=== PATIENT | male | born 1950 | race Caucasian/White ===

== ENCOUNTER 2020-11-06 12:46 | Emergency (ER) | payer MEDICARE, SELFPAY ==
--- NOTE | ~2020-11-06 | CT_ITS ---
EXAMINATION: CT cervical spine wo con DATE: 11/06/2020 13:28 INDICATION: Nontraumatic neck pain TECHNIQUE: Computed tomography (CT) of the cervical spine was performed without intravenous contrast. Automated exposure control and iterative reconstruction technique were employed. The dose-length pro duct was 455.01 mGy-cm. COMPARISON: None FINDINGS: Straightening of the normal lordosis in the lower cervical spine. Mild cervical dextrocurvature. Vert ebral body heights are normal. Severe disc height loss at C3-C4, C5-C6, C6-7 and C7-T1. Mild disc hei ght loss at the remaining levels from C2-C3 through T2-T3. Visualized portions of the mastoid air ayan ls, middle ear cavities, sphenoid sinus, airway and apices of lungs are clear. Cervical soft tissues are unremarkable. The following disc levels are specifically discussed: C2-C3: Disc is mildly bulging. There is mild bilateral uncovertebral joint osteoarthritis. There is m ild right and severe left facet joint osteoarthritis. There is no neural foraminal stenosis. There is minimal central canal stenosis. C3-C4: Posterior disc osteophyte complex. There is severe bilateral uncovertebral joint osteoarthriti s. There is mild right and severe left facet joint osteoarthritis. There is mild right and moderate l eft neural foraminal stenosis. There is mild central canal stenosis. C4-C5: Disc is bulging. There is mild bilateral uncovertebral joint osteoarthritis. There is moderate left and mild to moderate right facet joint osteoarthritis. There is mild left and minimal right bong ral foraminal stenosis. There is mild central canal stenosis. C5-C6: Posterior disc osteophyte complex. There is moderate left and severe right uncovertebral joint osteoarthritis. There is mild left and moderate right facet joint osteoarthritis. There is mild left and moderate right neural foraminal stenosis. There is mild central canal stenosis. C6-C7: History disc osteophyte complex. There is moderate left and severe right uncovertebral joint o steoarthritis. There is mild to moderate bilateral facet joint osteoarthritis. There is moderate left and mild to moderate right neural foraminal stenosis. There is mild central canal stenosis. C7-T1: The disc does not extend beyond the endplate margin. There is no uncovertebral joint osteoarth ritis. There is bilateral facet joint osteoarthritis. There is no neural foraminal stenosis. There is no central canal stenosis. IMPRESSION: 1. Severe cervical spondylosis. No acute osseous abnormality. Reviewed, dictated and finalized at location A.
[2020-11-06 12:48] VITALS: BP 150/86; PULSE 87; RESP 16; TEMP 36.6; O2SAT 98
--- NOTE | 2020-11-06 13:22 | ED.GENADULT ---
HPI - General Adult General Chief complaint: Back Pain/Injury Stated complaint: upper back/neck pain Time Seen by Provider: 11/06/20 12:57 Source: patient and family Mode of arrival: ambulatory Limitations: no limitations History of Present Illness HPI narrative: 70 years old white male presents with stiffness and pain left side of the neck left upper back and left upper chest started 4 days ago. Patient denies any recent trauma. Patient works out with running on a treadmill and lifting weights, patient also go [place] the country [place] weekend for 2 to 3 days in a row. Patient denies any fever, chills, nausea, vomiting, chest pain, trouble breathing, shortness of breath, sore throat or headache. Patient also denies any focal neuro deficit. Related Data Allergies Allergy/AdvReac Type Severity Reaction Status Date / Time No Known Allergies Allergy Unverified 11/23/14 08:08 Review of Systems Review of Systems: Narrative: CONSTITUTIONAL: Denies fever, chills, or sweats. EYES: Denies visual changes, redness, or discharge. ENT: Denies rhinorrhea, congestion, sore throat, or otalgia. CARDIOVASCULAR: Denies chest pain, palpitations, or edema. RESPIRATORY: Denies cough or dyspnea. GASTROINTESTINAL: Denies abdominal pain, nausea, vomiting, or diarrhea. GENITOURINARY: Denies dysuria or hematuria. SKIN: Denies rash or itching. MUSCULOSKELETAL: Denies back pain, joint pain, or myalgia. NEUROLOGIC: Denies headache, numbness, or weakness. PSYCHIATRIC: Denies anxiety or depression. Exam Narrative: Exam Narrative: General appearance: Well-developed, well-nourished Skin: Normal color Head: Normocephalic, nontraumatic Eyes: Clear conjunctiva ENT: Oropharynx normal, ears normal, nose normal Neck: Diffuse stiffness and tenderness left side of neck. No bruises, no swelling, no mass, no lymphadenopathy severe limited range of motion Chest and respiratory: Airway patent, no respiratory distress, no accessory muscle use Heart: Regular rate/rhythm Abdomen: Soft, nontender, no organomegaly, quiet bowel sounds Vascular: Normal peripheral pulses, normal capillary refill. Musculoskeletal: Normal range of motion, nontender back Neurologic: Alert and oriented ?3, TREE SCOUT is normal as tested, no gross motor deficit Course Course Emergency Course: Stable, improving Vital Signs Vital signs: Vital Signs Temperature 36.6 C 11/06/20 12:48 Pulse Rate 87 11/06/20 12:48 Respiratory Rate 16 11/06/20 12:48 Blood Pressure 150/86 H 11/06/20 12:48 Pulse Oximetry 98 11/06/20 12:48 Temperature 36.6 C 11/06/20 12:48 Pulse Rate 87 11/06/20 12:48 Respiratory Rate 16 11/06/20 12:48 Blood Pressure 150/86 H 11/06/20 12:48 Pulse Oximetry 98 11/06/20 12:48 Medical Decision Making MDM Narrative Medical decision making narrative: Patient presents with nontraumatic stiffness of left neck. Musculoskeletal is my concern. Labs, CT cervical spine ordered. Further plan to follow Differential Diagnosis Differential Diagnosis: Musculoskeletal pain, arthritis Vital Signs Vital Signs: Vital Signs Temperature 36.6 C 11/06/20 12:48 Pulse Rate 87 11/06/20 12:48 Respiratory Rate 16 11/06/20 12:48 Blood Pressure 150/86 H 11/06/20 12:48 Pulse Oximetry 98 11/06/20 12:48 Temperature 36.6 C 11/06/20 12:48 Pulse Rate 87 11/06/20 12:48 Respiratory Rate 16 11/06/20 12:48 Blood Pressure 150/86 H 11/06/20 12:48 Pulse Oximetry 98 11/06/20 12:48 Lab Data Result diagrams: 11/06/20 13:47 11/06/20 13:47 Labs: Lab Results 11/06/20 11/06/20 Range/Units 13:47 13:47 WBC 10.0 (4.5-10.0) K/mm3 RBC 5.11 (4.6-
[2020-11-06] MEDS: MORPHINE SULFATE (*CRX) 4 MG/ML INJ IV PUSH (14:04)
[2020-11-06] MEDS: ONDANSETRON INJ 4 MG/2 ML VIAL IV PUSH (14:04)
[2020-11-06] MEDS: diazePAM INJ (*CRX) 10 MG/2 ML SYRINGE 5 MG IV PUSH (14:04)
[2020-11-06 14:12] LABS: Basophils Absolute Auto 0.1 K/mm3 (0.0-0.1); Basophils Percent Auto 0.5 % (0.2-1.2); Eosinophils Absolute Auto 0.1 K/mm3 (0-0.3); Eosinophils Percent Auto 0.7 % (0-4.4); Hematocrit 44.1 % (42.0-52.0); Hemoglobin 15.1 g/dL (14.0-18.0); Immature Granulocyte Absolute 0.02 K/mm3 (0.00-0.031); Immature Granulocyte Percent A 0.2 % (0-0.5); Lymphocytes Absolute Auto 2.13 K/mm3 (0.9-3.2); Lymphocytes Percent Auto 21.3 % (18.3-44.2); Mean Corpuscular HGB Conc 34.2 g/dl (32-36); Mean Corpuscular Hemoglobin 29.5 pg (26-34); Mean Corpuscular Volume 86.3 fl (80-100); Mean Platelet Volume 10.6 fl (7.4-10.4); Monocytes Absolute Auto 0.8 K/mm3 (0.1-0.6); Monocytes Percent Auto 8.2 % (2.6-8.5); Neutrophils Absolute Auto 6.9 K/mm3 (1.3-6.7); Neutrophils Percent Auto 69.1 % (45.5-73.1); Platelet Count Result 237 k/mm3 (150-375); Red Blood Count 5.11 M/mm3 (4.6-6.20); Red Cell Distribution Width 12.5 % (11.5-14.5)
[2020-11-06 14:21] LABS: Alanine Aminotransferase 22 U/L (4-50); Albumin Level 4.2 g/dL (3.5-5.1); Alkaline Phosphatase 81 U/L (38-126); Anion Gap 8 mmol/L (8-16); Aspartate Amino Transferase 26 U/L (17-59); Bilirubin,Total 0.7 mg/dL (0.2-1.3); Blood Urea Nitrogen 18 mg/dL (9-20); Calcium 9.3 mg/dL (8.4-10.2); Carbon Dioxide 26 mmol/L (22-30); Chloride 105 mmol/L (98-107); Estimated CRCL calculation 67 ml/min; Estimated Glomerular Filt Rate > 60; Glucose 91 mg/dL (75-110); Potassium 3.8 mmol/L (3.4-5.0); Sodium 139 mmol/L (137-145)
[2020-11-06 15:15] LABS: Erythrocyte Sedimentation Rate 17 mm/hr (0-20)
[2020-11-06 15:47] VITALS: BP 127/75; PULSE 87; RESP 16; O2SAT 98
== END 2020-11-06 15:48 | disposition home or self-care (01) ==
PROVIDERS: Emergency Provider Emergency Medicine
DX: M47.812 Spondylosis without myelopathy or radiculopathy, cervical region (principal)
CPT/HCPCS: 36415; 72125; 80053; 85025; 85652; 96374; 96375; 99284; J2270; J2405; J3360

== ENCOUNTER 2025-05-02 08:56 | Emergency (ER) | payer MEDICARE, SELFPAY ==
--- OUTSIDE RECORDS SUMMARY | 2025-04-30 10:26 | XMS_ITS | Encounter Summary ---
Author Organization [facility] Healthcare Address [address] [place] [address] Care Team Providers Care Scow Derrick Operator Name Role Phone Wayne Mahmood DO Primary Care Provider + Veto Davila MD Unavailable [phone] Reason for Referral * MRI/CAT/PET Scan (Routine) - Closed Specialty Diagnoses / Procedures Referred By Contac t Referred To Contact Radiology Diagnoses Chronic right shoulder pain Internal derangement of right shoulder Procedures MRI [place] [id number] [address] Phone: tel: fax: [address] [phone] Referral ID Status Reason Start Date Expiration Date Visits Re quested Visits Authorized [id number] Closed 04/10/2025 05/10/2026 1 1 Reason for Visit * MRI/CAT/PET Scan (Routine) - Closed Specialty Diagnoses / Procedures Referred By Contac t Referred To Contact Radiology Diagnoses Chronic right shoulder pain Internal derangement of right shoulder Procedures MRI [place]er [place] [address] [place] [id number] Phone: tel: fax: [address] [phone] Referral ID Status Reason Start Date Expiration Date Visits Re quested Visits Authorized [id number] Closed 04/10/2025 05/10/2026 1 1 Encounter Details Date Type Department Care Team (Latest Contact Info) Description 04/30/2025 10:26 AM CDT - 04/30/2025 11:59 PM CDT Hospital Encounter [facility] Imaging and Radiology [address] [place] [phone] Chronic right shoulder pain; Internal derangement of right shoulder Discharge Disposition: Discharge to home or self care Social History Tobacco Use Types Packs/Day Years Used Date Smoking Tobacco: Never Smokeless Tobacco: Never Comments:occasionally a ciga r AUDIT-C Answer Date Recorded Q1: How often do you have a drink containing alcohol? 4 or more times a week 04/16/2021 Q2: How many drinks containi ng alcohol do you have on a typical day when you are drinking? 1 or 2 Q3: How often do you have si x or more drinks on one occasion? Never 04/16/2021 Sex and Gender Information Value Date Recorded Sex Assigned at Not on file Legal Sex Male 9:33 AM BEAM [employer] REC[employer] VAT Gender Identity Not on file Sexual Orientation Not on file documented as of this encounter Medications at Time of Discharge diclofenac DR (VOLTAREN) 75 mg EC tablet TAKE 1 TABLET(75 MG) BY MOUTH TWICE DAILY 90 tablet 04/03/2025 dilTIAZem CD 120 mg 24 hr capsule Take 1 capsule (120 mg total) by mouth daily 04/10/2021 meloxicam (MOBIC) 15 mg tablet Take 1 tablet (15 mg total) by mouth 01/27/2025 multivitamin capsule Take 1 capsule by mouth daily predniSONE (DELTASONE) 20 mg tablet Take 1 tablet (20 mg) by mouth daily 11/28/2024 traMADoL (ULTRAM) 50 mg tablet Take 1-2 tablets (50-100 mg total) by mouth every 6 (six) hours as needed for pain 20 tablet 04/23/2021 documented as of this encounter Discharge Disposition Disposition Code Departure Means Destination Discharge to home or self care documented in this encounter Plan of Treatment Not on file documented as of this encounter Procedures Procedure Name Priority Date/Time Associated Diagnosis Comments MRI SHOULDER RIGHT WO CONTRAST Schedule Routine, Read Routine (OP Routine) 04/30/2025 11:13 AM CDT Chronic right shoulder pain Internal derangement of right shoulder documented in this encounter Results * MRI Shoulder Right WO Contrast (04/30/2025 11:13 AM CDT) Anatomical Region Laterality Modality Upper Extremities Right Magnetic Reson ance 04/30/2025 1:30 PM CDT Impressions 04/30/2025 1:40 PM CDT 1. Near full-thickness anterior right supraspinatus tear at the footplate small partial-thickness articular sided tear of the right infraspinatus. 2. 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 Low-grade chondroid lesion in the proximal right humeral shaft. Dictated by: Janee Eastman M.D. The radiology attending physician has personally reviewed this study, and had reviewed and/or edited this written report and agrees with it. Electronically signed by: Chaparro Mahoney M.D. Narrative 04/30/2025 1:40 PM CDT EXAMINATION: 1. MRI right shoulder without contrast HISTORY: Acute on chronic right shoulder pain FINDINGS: Comparison 12/26/2024. MR examination of the right shoulder was performed with a local coil. Transverse, oblique coronal, and oblique sagittal short TR/TE and fast spin-echo images are obtained. There is a near full-thickness anterior supraspinatus tear at the footplate, measuring 1.6X 1.2 cm. There is a small partial-thickness articular sided tear of the infraspinatus with mild interstitial extension. The rotator cuff muscle bulk is normal. The subscapularis is intact. There is degenerative blunting of the superior labrum. There is atrophic tendinopathy of the long head biceps tendon. There is mild acromioclavicular and glenohumeral chondrosis. There is moderate subacromial bursitis. There is a T1 hypointense, T2 hyperintense bone marrow replacing lesion in the proximal humeral shaft. There is no significant marrow edema, cortical thinning or breakthrough or soft tissue mass. Procedure Note Chaparro Mahoney MD - 04/30/2025 EXAMINATION: 1. MRI right shoulder without contrast HISTORY: Acute on chronic right shoulder pain FINDINGS: Comparison 12/26/2024. MR examination of the right shoulder was performed with a local coil. Transverse, oblique coronal, and oblique sagittal short TR/TE and fast spin-echo images are obtained. There is a near full-thickness anterior supraspinatus tear at the footplate, measuring 1.6X 1.2 cm. There is a small partial-thickness articular sided tear of the infraspinatus with mild interstitial extension. The rotator cuff muscle bulk is normal. The subscapularis is intact. There is degenerative blunting of the superior labrum. There is atrophic tendinopathy of the long head biceps tendon. There is mild acromioclavicular and glenohumeral chondrosis. There is moderate subacromial bursitis. There is a T1 hypointense, T2 hyperintense bone marrow replacing lesion in the proximal humeral shaft. There is no significant marrow edema, cortical thinning or breakthrough or soft tissue mass. IMPRESSION: 1. Near full-thickness anterior right supraspinatus tear at the footplate small partial-thickness articular sided tear of the right infraspinatus. 2. 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 Low-grade chondroid lesion in the proximal right humeral shaft. Dictated by: Janee Eastman M.D. The radiology attending physician has personally reviewed this study, and had reviewed and/or edited this written report and agrees with it. Electronically signed by: Chaparro Mahoney M.D. Jordon Nieto MD IMG MRI PROCEDURES Final R esult documented in this encounter Visit Diagnoses Diagnosis Chronic right shoulder pain Pain in joint, shoulder region Internal derangement of right shoulder documented in this encounter Care Teams Scow Derrick Operator Relationship Specialty [place] [id number] [address] [place] [address] PCP - General Family Medicine 03/31/21 [place] [address] [address] [place] [address] Surgeon General Surgery 04/23/21 documented as of this encounter
--- NOTE | ~2025-05-02 | CT_ITS ---
EXAMINATION: CT abdomen pelvis w con DATE: 05/02/2025 10:00 INDICATION: Right lower quadrant abdominal pain. TECHNIQUE: Computed tomography (CT) of the abdomen and pelvis was performed with 100 mL Omnipaque 350 intravenous contrast. Automated exposure control and iterative reconstruction technique were employed. The dose-length product was 452.79 mGy-cm. COMPARISON: CT abdomen and pelvis 11/23/2014 FINDINGS: The visualized portions of lung bases demonstrate mild atelectasis. No pleural effusion. The heart size is normal. There are coronary artery calcifications. No pericardial effusion. There is mild bilateral gynecomastia. The liver and spleen are normal. The gallbladder is distended, likely secondary to fasting. The pancreas and adrenal glands are normal. There is a diverticulum of the second portion of the duodenum. There is a 3 mm stone in right kidney. There is a 5 mm stone in left kidney. There is a 7 mm stone in left renal pelvis. There are cysts in the kidneys including peripelvic cysts measuring up to 4.8 cm on the right. There is right-sided hydronephrosis and hydroureter. There is a 3 mm stone at right ureterovesicular junction. There is a 2.5 cm fibroid in the uterus. There is diverticulosis of the colon without evidence of diverticulitis. There are no dilated loops of bowel. The appendix is normal. There are no pathologically enlarged lymph nodes. There is no free intraperiton eal fluid. There is a left inguinal hernia containing fat. There is severe thoracic and lumbar spondylosis. IMPRESSION: 1. 3 mm stone at right ureterovesicular junction. Right hydronephrosis and hydroureter. 2. Nonobstructing stones in the kidneys and left renal pelvis. Reviewed, dictated and finalized at location E. IMPRESSION: 1. 3 mm stone at right ureterovesicular junction. Right hydronephrosis and hydr oureter. 2. Nonobstructing stones in the kidneys and left renal pelvis.
--- OUTSIDE RECORDS SUMMARY | 2025-05-02 09:20 | XMS_ITS | Clinical Summary ---
Author Organization [facility] Address [address] [place] [address] Care Team Providers Care Air Analysis Engineering Technician Name Role Phone Espinoza Dinh DO Primary Care Provider [phone] Source Comments [facility],non-owned Affiliates and Associated Physician Practices is amultiple site organization consisting of ambulatory clinics and hospital sitesin [place], [place], [place] and [place]. This disclosure is being madepursuant to the Care Everywhere program and may not contain all information available regarding this patient. Last updated 18.[facility] Allergies No known active allergies Medications * Be aware that medications may not be up to date on this document. Alwaysverify current medications with the patient. CARTIA XT 120 MG capsule 1 12/06/2014 Active aspirin (ASPIRIN) 81 MG tablet Take 81 mg by mouth once daily Active Active Problems No known active problems Social History Tobacco Use Types Packs/Day Years Used Date Smoking Tobacco: Former Cigarettes Smokeless Tobacco: Never Alcohol Use Standard Drinks/Week Comments No 0 (1 standard drink = 0.6 oz pur e alcohol) Sex and Gender Information Value Date Recorded Sex Assigned at Not on file Legal Sex Male 4:10 PM CDT Gender Identity Not on file Sexual Orientation Not on file Last Filed Vital Signs Vital Sign Reading Time Taken Comments Blood Pressure 120/80 03/03/2017 6:28 PM CDT Pulse 81 03/03/2017 6:28 PM CDT Temperature 37 C (98.6 F) 03/03/2017 6:28 PM CDT Respiratory Rate 16 03/03/2017 6:28 PM CDT Oxygen Saturation 95% 03/03/2017 6:28 PM CDT Inhaled Oxygen Concentration - - Weight 78 kg (172 lb) 03/03/2017 6:28 PM CDT Height 167.6 cm (5' 6) 03/03/2017 6:28 PM CDT Body Mass Index 27.76 03/03/2017 6:28 PM CDT Plan of Treatment Health Maintenance Due Date Last Done Comments COLOGUARD (AGES 45-75) - COL ON CA SCREENING 1950 COLON MONITORING 1950 COLONOSCOPY - COLON CA SCREENING 1950 CT COLONOGRAPHY - COLON CA SCREENING 1950 Colorectal Cancer Screening 1950 FIT - COLON CA SCREENING 1950 FLEX SIG - COLON CA SCREENING 1950 LIPID TESTING 1950 HEPATITIS C SCREENING 04/30/1968 DTAP/TDAP/TD VACCINES (1 - Tdap) 1969 PNEUMOCOCCAL VACCINE 50+ (1 of 1 - PCV) 2000 ZOSTER VACCINE (1 of 2) 2000 AAA SCREENING 2015 SCREENING FOR DIABETES 03/03/2017 DEPRESSION SCREENING 08/15/2024 COVID-19 VACCINE (1 - 2023-2 5 season) 2025 INFLUENZA VACCINE (#1) 2025 Respiratory Syncytial Virus (RSV) Vaccine Pt: or over 60 yrs (1 - 1-dose 75+ series) 2025 HEPATITIS B VACCINE Aged Out No longe r eligible based on patient's age to complete this topic HIB VACCINE Aged Out No longer eligi ble based on patient's age to complete this topic HPV VACCINE Aged Out No longer eligi ble based on patient's age to complete this topic MENINGOCOCCAL (Group B) VACC INE SHARED DECISION-MAKING Aged Out No longer eligibl e based on patient's age to complete this topic MENINGOCOCCAL GROUPS A/C/Y/W VACCINE Aged Out No longer eligible b ased on patient's age to complete this topic [place] [id number] MEDICARE COMMERCIAL GENERIC MEDICARE Care Teams Air Analysis Engineering Technician Relationship Specialty Start Date End Date Espinoza Dinh DO [address] [facility] [place] [address] PCP - General Welcome Center Attendant 12/23/14
--- NOTE | 2025-05-02 09:24 | ED.GENADULT ---
HPI - General Adult General Chief complaint: Abdominal Pain Stated complaint: stomach and back pains Time Seen by Provider: 05/02/25 09:00 History of Present Illness HPI narrative: 74-year-old male presented to the emergency department for evaluation for back ache and right lower quadrant abdominal pain. Patient states that the symptoms started last night. patient states he was driving yesterday and felt the lower back ache but then this started of wellbeing and to nausea vomiting and right lower quadrant abdominal pain. Patient does report a remote history of kidney stones. Patient does have a prior history of small-bowel obstruction approximately 10 years ago for which he was treated at [facility]. patient denies any prior history of cholecystectomy or appendectomy. Related Data Allergies Allergy/AdvReac Type Severity Reaction Status Date / Time No Known Allergies Allergy Unverified 11/23/14 08:08 Review of Systems Review of Systems: All systems reviewed & are unremarkable except as noted in HPI and below Exam Narrative: APPEARANCE: Well appearing, no pain, no distress, well-nourished. HEAD: normocephalic, atraumatic. EYES: PERRLA/EOMI, conjunctivae clear. NOSE: Normal no drainage EARS:TMS clear with good light reflex. THROAT: Pharynx clear, no exudate. NECK: Supple. No adenopathy, no masses. RESPIRATORY: Airway patent, respirations nonlabored. Clear to auscultation bilaterally, no rales, rhonchi, wheezing. CARDIOVASCULAR: Regular rate and rhythm without murmurs rubs or gallops. ABDOMINAL: Soft, nontender, nondistended, normal bowel sounds MUSCULOSKELETAL: Moves all extremities. Strength/ROM intact, No edema, No calf tenderness. NEURO: Alert. Cranial nerves II through XII intact. SKIN: Warm, dry. Normal Color Course Vital Signs Vital signs: Vital Signs Temperature 97.6 F 05/02/25 09:26 Pulse Rate 62 05/02/25 09:26 Respiratory Rate 17 05/02/25 09:26 Blood Pressure 139/93 H 05/02/25 09:26 Pulse Oximetry 97 05/02/25 09:26 Temperature 98.2 F 05/02/25 12:38 Pulse Rate 92 05/02/25 12:38 Respiratory Rate 18 05/02/25 12:38 Blood Pressure 135/85 05/02/25 12:38 Pulse Oximetry 96 05/02/25 12:38 Medical Decision Making [facility] Narrative Medical decision making narrative: 74-year-old male presents emergency department for evaluation for right flank pain. Patient is afebrile but does have a leukocytosis of 12.4 hemoglobin of 15.9. Patient does have mild MILTON but states yesterday he was lying concrete and did not drink very much water. Patient is tolerating p.o. now. Patient was treated with a L of lactated [facility] emergency department. UA was positive for blood but negative for underlying infection. CT scan does show a 3 mm ureteral calculi at the distal right ureter. Patient was treated with IV pain medications and patient will be discharged home with Flomax, Leota and Zofran for symptom control. Patient was updated the results of workup and plan for treatment for home. Patient states he does feel well enough to be discharged home. All questions concerns were addressed Differential Diagnosis Differential Diagnosis: Ureteral calculi, urinary tract infection, colitis, diverticulitis, appendicitis, cholecystitis Vital Signs Vital Signs: Vital Signs Temperature 97.6 F 05/02/25 09:26 Pulse Rate 62 05/02/25 09:26 Respiratory Rate 17 05/02/25 09:26 Blood Pressure 139/93 H 05/02/25 09:26 Pulse Oximetry 97 05/02/25 09:26 Temperature 98.2 F 05/02/25 12:38 Pulse Rate 92 05/02/25 12:38 Respiratory Rate 18 05/02/25 12:38 Blood Pressure 135/85 05/02/25 12:38 Pulse Oximetry 96 05/02/25 12:38 Lab Data Lab results reviewed: Yes I reviewed the patient's lab results. 05/02/25 09:19 05/02/25 09:19 Labs: Lab Results 05/02/25 05/02/25 Range/Units 09:19 11:10 WBC 12.4 H (4.5-10.0) K/mm3 RBC 5.26 (4.6-6.20) M/mm3 Hgb 15.9 (14.0-18.0) g/dL Hct 47.3 (42.0-52.0) % MCV 89.9 (80-100) fl MCH 30.2 (26-34) pg MCHC 33.6 (32-36) g/dl RDW 13.0 (11.5-14.5) % Plt Count 237 (150-375) k/mm3 MPV 10.4 (7.4-10.4) fl Immature Gran % (Auto) 0.4 (0-0.5) % Neut % (Auto) 83.9 H (45.5-73.1) % Lymph % (Auto) 7.6 L (18.3-44.2) % Douglas % (Auto) 7.4 (2.6-8.5) % Eos % (Auto) 0.1 (0-4.4) % Baso % (Auto) 0.6 (0.2-1.2) % Lymph # (Auto) 0.94 (0.9-3.2) K/mm3 Douglas # (Auto) 0.9 H (0.1-0.6) K/mm3 Eos # (Auto) 0.0 (0-0.3) K/mm3 Baso # (Auto) 0.1 (0.0-0.1) K/mm3 Abs Immat Gran (auto) 0.05 H (0.00-0.031) K/mm3 Absolute Neuts (auto) 10.4 H (1.3-6.7) K/mm3 Absolute Nucleated RBC 0.000 (0.0-0.012) K/mm3 Nucleated RBC % 0.0 (0.0-0.2) % Sodium 135 L (137-145) mmol/L Potassium 4.3 (3.4-5.0) mmol/L Chloride 103 (98-107) mmol/L Carbon Dioxide 23 (22-30) mmol/L Anion Gap 9 (4-12) mmol/L BUN 29 H D (9-20) mg/dL Creatinine 1.42 H (0.7-1.3) mg/dL Estim Creat Clear Calc 37 ml/min Estimated GFR 49 L (59 - ) Glucose 119 H (65-110) mg/dL Calcium 9.0 (8.4-10.2) mg/dL Total Bilirubin 1.3 (0.2-1.3) mg/dL AST 37 (17-59) U/L ALT 27 (6-50) U/L Alkaline Phosphatase 95 (38-126) U/L Total Protein 7.9 (6.3-8.2) g/dL Albumin 4.4 (3.5-5.1) g/dL Lipase 76 (23-300) U/L Urine Color Yellow (Yellow) Urine Appearance Clear (Clear) Urine pH 5.0 (5.0-9.0) Ur Specific Aultman > 1.045 H (1.001-1.035) Urine Protein Trace (Negative) mg/dL Urine Glucose (UA) Negative (Negative) mg/dL Urine Ketones 2+ H (Negative) mg/dL Ur Blood (Man) 1+ H (Negative) Urine Nitrate Negative (Negative) Urine Bilirubin Negative (Negative) Urine Urobilinogen 0.2 (<2.0) mg/dL Leukocyte Esterase Rfl Negative (Negative) AURELIO/UL Urine RBC 11-20 H (0-2) /hpf Urine WBC 0-5 (0-3) /hpf Ur Squamous Epith Cells None seen (Few) /hpf Urine Bacteria None seen /hpf Urine Casts 0-2 Discharge Plan Discharge Clinical Impression: Calculus, ureteral Patient Disposition: Home Condition: Stable Instructions: Antibiotic Form, Kidney Stones (ED), How to Strain Your Urine (ED) Additional Instructions: Ibuprofen for pain control. Leota as needed for additional pain control. Flomax as directed to help you pass the stone. Zofran as needed for nausea. Have close follow-up with Urology. If you have any worsening symptoms then please call or return to the emergency department. Patient Language: Hong Konger Prescriptions: New hydrocodone-acetaminophen 5-325 mg tablet 1 tablet PO Q12H PRN (Reason: pain) Qty: 14 0RF tamsulosin [Flomax] 0.4 mg capsule 0.4 mg PO DAILY 14 Days Qty: 14 0RF ondansetron 4 mg tablet,disintegrating 4 mg PO Q8H PRN (Reason: nausea and vomiting) Qty: 14 0RF No Action naproxen [Naprosyn] 500 mg tablet 500 mg PO BID PRN (Reason: pain) Qty: 10 0RF cyclobenzaprine 10 mg tablet 10 mg PO TID PRN (Reason: muscle spasm) Qty: 20 0RF Follow-up/Referrals: PHYSICIAN NOT ON STAFF,NONSTAFF [Non-Staff] Jonathon Serrato MD [Physician, Urology]
[2025-05-02 09:26] VITALS: BP 139/93; PULSE 62; RESP 17; TEMP 36.4; O2SAT 97
[2025-05-02 09:29] LABS: Hematocrit 47.3 % (42.0-52.0); Hemoglobin 15.9 g/dL (14.0-18.0); Immature Granulocyte Percent A 0.4 % (0-0.5); Lymphocytes Absolute Auto 0.94 K/mm3 (0.9-3.2); Mean Corpuscular HGB Conc 33.6 g/dl (32-36); Mean Corpuscular Hemoglobin 30.2 pg (26-34); Mean Corpuscular Volume 89.9 fl (80-100); Nucleated Red Blood Cells Absolute Auto 0.000 K/mm3 (0.0-0.012); Nucleated Red Blood Cells Perc 0.0 % (0.0-0.2); Platelet Count Result 237 k/mm3 (150-375); Red Blood Count 5.26 M/mm3 (4.6-6.20); White Blood Count 12.4 K/mm3 (4.5-10.0)
[2025-05-02] MEDS: ONDANSETRON INJ 4 MG/2 ML VIAL IV PUSH (09:37)
[2025-05-02] MEDS: HYDROmorphone HCL INJ (*CRX) 1 MG/ML SYR 0.5 MG IV PUSH ×2 (09:40→11:14)
[2025-05-02 09:41] LABS: Alanine Aminotransferase 27 U/L (6-50); Albumin Level 4.4 g/dL (3.5-5.1); Alkaline Phosphatase 95 U/L (38-126); Anion Gap 9 mmol/L (4-12); Aspartate Amino Transferase 37 U/L (17-59); Bilirubin,Total 1.3 mg/dL (0.2-1.3); Blood Urea Nitrogen 29 mg/dL (9-20); Calcium 9.0 mg/dL (8.4-10.2); Carbon Dioxide 23 mmol/L (22-30); Chloride 103 mmol/L (98-107); Estimated CRCL calculation 37 ml/min; Estimated Glomerular Filt Rate 49; Glucose 119 mg/dL (65-110); Lipase 76 U/L (23-300); Potassium 4.3 mmol/L (3.4-5.0); Sodium 135 mmol/L (137-145); Total Protein 7.9 g/dL (6.3-8.2)
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
--- OUTSIDE RECORDS SUMMARY | 2025-05-02 10:22 | XMS_ITS | Clinical Summary ---
Author Organization [facility] [employer] Address [address] [place] [address] Care Team Providers Care French Folder Name Role Phone Espinoza Dinh DO Primary Care Provider [phone] Source Comments [facility],non-owned Affiliates and Associated Physician Practices is amultiple site organization consisting of ambulatory clinics and hospital sitesin [place], [place], [place] and [place]. This disclosure is being madepursuant to the Care Everywhere program and may not contain all information available regarding this patient. Last updated 18.[facility] [employer] Allergies No known active allergies Medications * [...] complete this topic [place] [address] MEDICARE COMMERCIAL GENERIC MEDICARE Care Teams French Folder Relationship Specialty Start Date End Date Espinoza Dinh DO [address] [facility] [address] [place] [address] PCP - General Director Data Management 12/23/14
--- OUTSIDE RECORDS SUMMARY | 2025-05-02 10:22 | XMS_ITS | Encounter Summary ---
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
--- OUTSIDE RECORDS SUMMARY | 2025-05-02 10:22 | XMS_ITS | Encounter Summary ---
Author Organization [facility] Healthcare Address [address] [place] [address] Care Team Providers Care Enterprise Security Architect Name Role Phone Wayne Mahmood DO Primary Care Provider + Veto Davila MD Unavailable [phone] Encounter Details Date Type Department Care Team (Latest Contact Info) Description 05/01/2025 Results Follow-Up 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
[2025-05-02] MEDS: LACTATED RINGERS 1,000 ML 999 ML IV CONT (11:14)
[2025-05-02 11:20] LABS: Add Urine Microscopic? YES; Appearance Urine Clear (Clear); Glucose Urine UA Negative (Negative); Leukocyte Esterase Ur Negative LEU/UL (Negative); Nitrate Urine Negative (Negative); Non Pathogenic Casts 0-2; Specific Grav Ur > 1.045 (1.001-1.035)
[2025-05-02] MEDS: KETOROLAC 15 MG/ML VIAL (*BKC) IV PUSH (11:28)
[2025-05-02 12:38] VITALS: BP 135/85; PULSE 92; RESP 18; TEMP 36.8; O2SAT 96
== END 2025-05-02 12:41 | disposition home or self-care (01) ==
PROVIDERS: Emergency Provider Emergency Medicine
DX: N13.2 Hydronephrosis with renal and ureteral calculous obstruction (principal); Z87.442 Personal history of urinary calculi
CPT/HCPCS: 36415; 74177; 80053; 81001; 83690; 85025; 96361; 96374; 96375; 96376; 99284; J1171; J1885; J2405; J7120; Q9967

== ENCOUNTER 2025-05-31 10:49 | Outpatient (CLI) | payer MEDICARE, SELFPAY ==
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
--- NOTE | 2025-05-31 10:56 | ECG_ITS ---
Test Date: 2025-05-31 11:12:15 Measurements Intervals [place] Rate: 80 P: 89 MS: 139 QRS: -12 QRSD: 122 T: 40 QT: 388 QTc: 449 Interpretive Statements SINUS RHYTHM LEFT BUNDLE BRANCH BLOCK BASELINE ARTIFACT- I, II, III, AVR, AVL, AVF ABNORMAL ECG No previous ECG available for comparison Electronically Signed On 05-31-2025 11:16:00 CDT by Mohinder May D.O.
[2025-05-31 11:35] LABS: INR 1.0; Prothrombin Time 12.9 Seconds (11.1-14.7)
[2025-05-31 11:36] LABS: Partial Thromboplastin Time 28.9 Seconds (22.3-36.8)
--- OUTSIDE RECORDS SUMMARY | 2025-05-31 11:43 | XMS_ITS | Encounter Summary ---
Author Organization [facility] Healthcare Address [address] [place] [address] Care Team Providers Care Mixing Supervisor Name Role Phone Wayne Mahmood DO Primary Care Provider + Veto Davila MD Unavailable [phone] Encounter Details Date Type Department Care Team (Latest Contact Info) Description 05/01/2025 Results Follow-Up 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
--- OUTSIDE RECORDS SUMMARY | 2025-05-31 11:43 | XMS_ITS | Clinical Summary ---
Author Organization [facility] Address [address] [place] [address] Care Team Providers Care Clinical Operations Specialist Name Role Phone Espinoza Dinh DO Primary Care Provider Source Comments [facility],non-owned Affiliates and Associated Physician Practices is amultiple site organization consisting of ambulatory clinics and hospital sitesin [place], [place], [place] and [place]. This disclosure is being madepursuant to the Care Everywhere program and may not contain all information available regarding this patient. Last updated 18.[facility] Allergies No known active allergies Medications * [...] 2000 ZOSTER VACCINE (1 of 2) 2000 SCREENING FOR DIABETES 03/03/2017 DEPRESSION SCREENING 08/15/2024 [...] patient's age to complete this topic Insurance MEDICARE [employer] Address: [address] [place] [address] MEDICARE Care Teams Clinical Operations Specialist Relationship Specialty Start Date End Date Espinoza Dinh DO [address] [facility] [place] [place] [address] PCP - General Bullet Slug Casting Machine Operator 12/23/14
--- OUTSIDE RECORDS SUMMARY | 2025-05-31 11:44 | XMS_ITS | Clinical Summary ---
Author Organization [facility] Physician Of [facility] [address] [place] [phone] Care Team Providers Care Digital Publishing Specialist Name Role Phone Wayne Mahmood DO Primary Care Provider + Veto Davila MD Unavailable [phone] Allergies No known active allergies Medications dilTIAZem CD 120 mg 24 hr capsule Take 1 capsule (120 mg total) by mouth daily 1 Active multivitamin capsule Take 1 capsule by mouth daily Active traMADoL (ULTRAM) 50 mg tablet Take 1-2 tablets (50-100 mg total) by mouth every 6 (six) hours as needed for pain 20 tablet 1 Active Additional Information Patient not taking.Reported on 05/29/2025 meloxicam (MOBIC) 15 mg tablet Take 1 tablet (15 mg total) by mouth 5 Active predniSONE (DELTASONE) 20 mg tablet Take 1 tablet (20 mg) by mouth daily [address] (VOLTAREN) 75 mg EC tablet TAKE 1 TABLET(75 MG) BY MOUTH TWICE DAILY 90 tablet 5 Active tamsulosin (FLOMAX) 0.4 mg extended release capsule Take 1 capsule (0.4 mg total) by mouth daily Take for 7 days 5 Active Active Problems Problem Noted Date Diagnosed Date Chronic pain of both shoulders 04/24/2025 Cervical radiculopathy 04/24/2025 Cervical spinal stenosis 04/24/2025 Sebaceous cyst 04/15/2021 Overview (04/15/2021): Added automatically from request for surgery [id number] Encounters Date Type Department Care Team Description 05/29/2025 8:47 AM CDT - 05/29/2025 11:59 PM CDT Hospital Encounter [facility] Pain Management [address] [place] [address] [address] [place] [phone] Rodriguez Bentley NP Cervical radiculopathy (Primary Dx); Cervical spinal stenosis Discharge Disposition: Discharge to home or self care 05/27/2025 Telephone [facility] Pain Management [address] [place] [address] [address] [place] [address] Ivett Balderas 05/08/2025 11:00 AM CDT Office Visit [facility] Medical Group Orthopedics and Sports Medicine at [address] [phone] Jordon Nieto MD Nontraumatic complete tear of right rotator cuff (Primary Dx); Right bicipital tenosynovitis 05/08/2025 8:38 AM CDT - 05/08/2025 11:59 PM CDT Hospital Encounter [facility] Pain [address] [address] Wayne Sloan MD Cervical spinal stenosis [M48.02] (Primary Dx); Cervicalgia; Cervical radiculopathy Discharge Disposition: Discharge to home or self care 05/01/2025 Results Follow-Up [facility] Medical Group Orthopedics and Sports Medicine at [address] [phone] Jordon Nieto MD MRI Shoulder Right WO Contrast 04/30/2025 10:26 AM CDT - 04/30/2025 11:59 PM CDT Hospital Encounter [facility] Imaging and Radiology [address] [place] [phone] Chronic right shoulder pain; Internal derangement of right shoulder Discharge Disposition: Discharge to home or self care 04/24/2025 8:29 AM CDT - 04/24/2025 11:59 PM CDT Hospital Encounter [facility] Management Center [address] [place] [address] Wayne Sloan MD Chronic pain of both shoulders (Primary Dx); Cervicalgia; Cervical radiculopathy; Cervical spinal stenosis Discharge Disposition: Discharge to home or self care 04/10/2025 10:45 AM CDT Office Visit [facility] Medical Group Orthopedics and Sports Medicine at [address] [place] [phone] Jordon Nieto MD Left bicipital tenosynovitis (Primary Dx); Incomplete tear of left rotator cuff, unspecified whether traumatic; Chronic right shoulder pain; Internal derangement of right shoulder 04/02/2025 12:45 PM CDT Office Visit [facility] [address] [place] [address] [place] [address] Malou Ling NP Cervical radiculopathy (Primary Dx) 03/27/2025 Results Follow-Up [facility] Group Orthopedics and Sports Medicine at [address] [place] [phone] Jordon Nieto MD MRI Shoulder Left WO Contrast 03/26/2025 8:28 AM CDT - 03/26/2025 11:59 PM CDT Hospital Encounter [facility] Imaging and Radiology [address] [place] [phone] Internal derangement of left shoulder; Chronic left shoulder pain Discharge Disposition: Discharge to home or self care 03/26/2025 8:28 AM CDT - 03/26/2025 11:59 PM CDT Hospital Encounter [facility] Imaging and Radiology [address] [place] [phone] Cervical spondylosis with myelopathy [M47.12] Discharge Disposition: Discharge to home or self care 03/21/2025 11:00 AM CDT Office Visit [address] [place] [address] Malou Lnig NP Cervical spondylosis with myelopathy [M47.12] (Primary Dx); DDD (degenerative disc disease), cervical; Anterolisthesis of cervical spine 03/21/2025 Telephone [facility] [address] [facility] [address] [place] [address] Malou Ling NP 03/21/[address] [place] [address] Malou Ling NP 03/20/[address] [place] [address] Buddy Bentley RN Appointment Reminder Call from Last 3 Months Surgical History Surgery [...] on file 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 Gender Identity Not on file Sexual Orientation Not on file Obstetrics History Last Filed Vital Signs Vital Sign Reading Time Taken Comments Blood Pressure 139/84 05/29/2025 8:53 AM CDT Pulse 83 05/29/2025 8:53 AM CDT Temperature 36.5 C (97.7 F) 05/08/2025 8:50 AM CDT Respiratory Rate 16 05/29/2025 8:53 AM CDT Oxygen Saturation 97% 05/29/2025 8:53 AM CDT Inhaled Oxygen Concentration - - Weight 74.8 kg (165 lb) 05/08/2025 11:10 AM CDT Height 165.1 cm (5' 5) 05/08/2025 11:10 AM CDT Body Mass Index 27.46 05/08/2025 11:10 AM CDT Plan of Treatment Health Maintenance [...] Procedure Name Priority Date/Time Associated Diagnosis Comments PAIN MGMT IMAGING CERVICAL/THORACIC EPIDURAL STEROID INJ Schedule Routine, Read Routine (OP Routine) 05/08/2025 8:56 AM CDT Cervicalgia Cervical radiculopathy MRI SHOULDER RIGHT WO CONTRAST Schedule Routine, [...] of left shoulder Chronic left shoulder pain from Last 3 Months Results * Imaging Cervical/Thoracic Epidural Steroid INJ ([id number]) (05/08/2025 8:56 AM CDT) Narrative RAD_PACS_CH - 05/08/2025 9:04 AM CDT The images from this study are not interpreted by Radiology. Please refer to the physician's procedure / OR operative note. us Wayne Sloan MD IMG PAIN MGMT PROCEDU RES Final Result RAD_PACS_CH * MRI Shoulder Right WO Contrast (04/30/2025 [...] MD IMG MRI PROCEDURES Final R esult * MRI Cervical Spine WO Contrast (03/26/2025 9:32 AM CDT) Anatomical Region Laterality Modality Spine N/A Magnetic Resonan ce 03/26/2025 3:24 PM CDT Impressions 03/26/2025 3:24 PM CDT Multilevel degenerative changes of the cervical spine as described in detail above. Electronically signed by: DO Kamron Kc 03/26/2025 3:24 PM CDT EXAMINATION: Magnetic resonance [...] spinal canal stenosis. Procedure Note Annita Mora, - 03/26/2025 EXAMINATION: Magnetic resonance imaging (MRI) [...] above. Electronically signed by: Annita Chow DO us Malou Ling MOTION PICTURE ACTOR IMG MRI PROCEDURES Sylvia l Result * [...] MD IM MRI PROCEDURES Final R esult from Last 3 Months Insurance UHC MEDICARE ADVANTAGE [facility] MEDICARE Address: [address] [address] MEDICARE AETNA [facility] MEDICARE ADVANTAGE [facility] MEDICARE Address: [address] [address] [place] [address] Care Teams Digital Publishing Specialist Relationship Specialty [place] [address] [address] [place] [address] PCP - General Family Medicine 03/31/21 [place] [phone] [address] [place] [address] Surgeon General Surgery 04/23/21
== END 2025-05-31 10:50 | disposition home or self-care (01) ==
PROVIDERS: Visit Provider Urology
DX: R94.31 Abnormal electrocardiogram [ECG] [EKG] (principal); N20.0 Calculus of kidney; R00.2 Palpitations; R00.0 Tachycardia, unspecified
CPT/HCPCS: 36415; 85610; 85730; 87086; 93005

== ENCOUNTER 2025-06-07 02:04 | Day surgery (SDC) | payer MEDICARE, SELFPAY ==
--- NOTE | 2025-05-29 12:56 | P.HP_ITS ---
History of Present Illness History of Present Illness Consent: Risks, benefits, and alternatives have been discussed and questions answered. Patient agrees to proceed with procedure. Chief complaint: left kidney stone Narrative: Ron Belle is a 75 year old male who is new to our practice but says he spontaneously passed a stone in the remote past. ?He was in the ER on 05/02 with a 3 mm right UVJ stone which now seems to have passed disease had no pain. ?A dditionally, he has a 10 mm stone in his left renal pelvis and a 5 mm stone in the periphery of his left kidney. ?After careful discussion of options he elects for left ESWL. ?Based on imaging and position of stones on that day we may do cystoscopy and place a left ureteral stent Review of Systems Cardiovascular: Cardiovascular: Denies chest pain, Denies lightheadedness, Denies palpitations and Denies dyspnea Respiratory: Respiratory: Denies dyspnea Gastrointestinal: Gastrointestinal: Denies diarrhea, Denies nausea and Denies vomiting Genitourinary: Genitourinary: Denies hematuria and Denies dysuria Endocrine: Endocrine: Denies palpitations Meds Home Medications and Allergies Home Medications ?Medication ?Instructions ?Recorded ?Confirmed ?Type cyclobenzaprine 10 mg tablet 10 mg PO TID PRN muscle s pasm #20 11/06/20 Rx tabs naproxen 500 mg tablet (Naprosyn) 500 mg PO BID PRN pa in #10 tabs 11/06/20 Rx hydrocodone 5 mg-acetaminophen 325 1 tablet PO Q12H RI N pain #14 tabs 05/02/25 Rx mg tablet ondansetron 4 mg disintegrating 4 mg PO Q8H PRN nausea and 05/02/25 Rx tablet vomiting #14 tabs tamsulosin 0.4 mg capsule (Flomax) 0.4 mg PO DAILY 14 days #14 caps 05/02/25 Rx Allergies Allergy/AdvReac Type Severity Reaction Status Date / Time No Known Allergies Allergy Unverified 11/23/14 08:08 Exam Const: General: no acute distress Resp: Effort & Inspection: normal respiratory effort GI: Inspection: non-distended GI Palp: No abdominal tenderness and No Guarding due to palpation present (GI) Auscultation: normal bowel sounds Assessment and Plan Assessment and plan (1) Left renal stone: Code(s): N20.0 - Calculus of kidney Status: Acute Assessment and Plan: Left ESWL, possible cystoscopy and left ureteral stent placement
[2025-05-30 14:24] VITALS: BMI 25.9
--- NOTE | 2025-05-30 14:38 | PC.NURSE ---
[facility] has started construction of its new state of the art ER which will open Spring 2026. With this, we anticipate parking may be a challenge for some our surgical patients and families. Parking spaces are limited but are available for all Surgical, obstetrics, and ER patients sharing this lot. If you arrive and find you are having a hard time finding a parking space, please note that we understand the challenges, please drive around the hospital and park near Hospital Entrance 1. When you enter this entrance, you can ask a volunteer to direct or take you back to the surgical waiting area to check in. We appreciate everyone?s understanding of these expected challenges while we build for your future. Report to the Outpatient Waiting Room, entrance under the green pavilion located off [address], at time __0730am on date __06/07/25 . Planned Procedure Time: _0930am .? Time changes happen often and if your time is changed the preop area will call you the afternoon before. - You and your visitor will be asked to self-screen and do not enter if you have any COVID symptoms. Please call surgeon if you need to reschedule. - A mask is optional within the hospital at this time. Patients may have clear liquids (water, carbonated beverages, clear teas, apple juice) until 3 hours prior to surgery with a maximum of 20 ounces. - No food from midnight until time of surgery and no smoking, or chewing tobacco (or any form of nicotine). No chewing gum, candy or mints. (0630am) Take only the following medications with a SIP of water on the morning of surgery: ____ Diltiazem, Extr Tylenol prn if needed DO NOT STOP ANY OF YOUR OTHER PRESCRIPTION MEDICATIONS PRIOR TO SURGERY EXCEPT THE FOLLOWING Hold all vitamins and supplements for 3 days per anesthesiologist. Medications to discontinue per physician __HOLD Meloxicam/NSAIDS/ALEVE/EXECEDRIN for [address] Serrato Date to take last dose____05/30/25 Please no make-up, nail tajik, hairspray, perfume, deodorant, or body powder the day of surgery.? No jewelry (including any body piercings) or valuables the day of surgery, leave them at home.? Please take a shower or bath the night before, or the morning of, surgery with an antibacterial soap.? Wear comfortable, loose fitting clothing.? - Jewelry must be removed prior to entering the operating room.? Rings and piercings that are not removed may be cut off. - The hospital will not accept responsibility for valuables.? - Please leave all valuables, including medications, at home the day of surgery. If you are going home after surgery, a licensed trash collector truck driver must drive you home.? - NO public transportation without another adult if you receive anesthesia. - We recommend that an adult stay with you for 24 hours following discharge. - We also recommend that you do not drive, make important decision, drink alcoholic beverages, or take any drugs that were not prescribed by your health care provider for at least 24 hours after your discharge time. Follow any additional instructions given to you from your surgeon. Telephone instructions given to __Patient and asked if any additional questions and then verbalized understanding. Patient advised to call surgeon office or pre surgery nurse liaison [phone] if any additional questions.
[2025-06-07] VITALS (7 sets, daily range): BP systolic 103–134; BP diastolic 78–94; PULSE 67–92; RESP 10–16; TEMP 36.1–36.5; O2SAT 98–100; BMI 26.4
--- NOTE | ~2025-06-07 | XR_ITS ---
XR abdomen/kub 1V 06/07/2025 07:58 Indication: Preop ESWL Procedure: KUB Comparison: CT dated 05/02/2025 Findings: There is a left renal stone. There is a possible left UPJ stone at the L3 level overlying the transverse process. There is a left pelvic phlebolith. Bowel gas pattern is nonobstructive. No acute osseous abnormality. Lung bases unremarkable. Impression: 1: Left nephrolithiasis. Possible stone at the UPJ overlying the left L3 transverse process. Reviewed, dictated and finalized at location O. Impression: 1: Left nephrolithiasis. Possible stone at the UPJ overlying the left L3 transv erse process.
--- OUTSIDE RECORDS SUMMARY | 2025-06-07 02:07 | XMS_ITS | Clinical Summary ---
Author Organization [facility] Physician Of [facility] [address] [place] [phone] Care Team Providers Care Financial Services Internship Name Role Phone Wayne Mahmood DO Primary Care Provider + Veto Davila MD Unavailable [phone] Allergies No known active allergies Medications dilTIAZem [...] (04/15/2021): Added automatically from request for surgery [id number] Encounters Date Type Department Care Team Description 05/29/2025 8:47 AM CDT - 05/29/2025 11:59 PM CDT Hospital Encounter [facility] Pain Management [address] [place] [address] [address] [place] [phone] Rodriguez Bentley NP Cervical radiculopathy (Primary Dx); Cervical spinal stenosis Discharge Disposition: Discharge to home or self care 05/27/2025 Telephone [facility] Pain Management [address] [place] [address] [address] [place] [address] Ivett Balderas 05/08/2025 11:00 AM CDT Office Visit [facility] Medical Group Orthopedics and Sports Medicine at [address] [phone] Jordon Nieto MD Nontraumatic complete tear of right rotator cuff (Primary Dx); Right bicipital tenosynovitis 05/08/2025 8:38 AM CDT - 05/08/2025 11:59 PM CDT Hospital Encounter [facility] Pain [address] [address] Wayne Sloan MD Cervical spinal stenosis [M48.02] (Primary Dx); Cervicalgia; Cervical radiculopathy Discharge Disposition: Discharge to home or self care 05/01/2025 Results Follow-Up [facility] Medical Group Orthopedics and Sports Medicine at [address] [phone] Jordon Nieto MD MRI Shoulder Right WO Contrast 04/30/2025 10:26 AM CDT - 04/30/2025 11:59 PM CDT Hospital Encounter [facility] HealthCare Imaging and Radiology [address] [place] [phone] Chronic right shoulder pain; Internal derangement of right shoulder Discharge Disposition: Discharge to home or self care 04/24/2025 8:29 AM CDT - 04/24/2025 11:59 PM CDT Hospital Encounter [facility] Pain Management Center [address] [place] [address] Wayne Sloan MD Chronic pain of both shoulders (Primary Dx); Cervicalgia; Cervical radiculopathy; Cervical spinal stenosis Discharge Disposition: Discharge to home or self care 04/10/2025 10:45 AM CDT Office Visit [facility] Medical Group Orthopedics and Sports Medicine at [address] [place] [phone] Jordon Nieto MD Left bicipital tenosynovitis (Primary Dx); Incomplete tear of left rotator cuff, unspecified whether traumatic; Chronic right shoulder pain; Internal derangement of right shoulder 04/02/2025 12:45 PM CDT Office Visit [facility] [address] [place] [address] [place] [address] Malou Ling NP Cervical radiculopathy (Primary Dx) 03/27/2025 Results Follow-Up [facility] Group Orthopedics and Sports Medicine at [address] [place] [phone] Jordon Nieto MD MRI Shoulder Left WO Contrast 03/26/2025 8:28 AM CDT - 03/26/2025 11:59 PM CDT Hospital Encounter [facility] Imaging and Radiology [address] [place] [phone] Internal derangement of left shoulder; Chronic left shoulder pain Discharge Disposition: Discharge to home or self care 03/26/2025 8:28 AM CDT - 03/26/2025 11:59 PM CDT Hospital Encounter [facility] Imaging and Radiology [address] [place] [phone] Cervical spondylosis with myelopathy [M47.12] Discharge Disposition: Discharge to home or self care 03/21/2025 11:00 AM CDT Office Visit [address] [place] [address] Malou Ling NP Cervical spondylosis with myelopathy [M47.12] (Primary Dx); DDD (degenerative disc disease), cervical; Anterolisthesis of cervical spine 03/21/2025 Telephone [facility] [address] [facility] [address] [place] [address] Malou Ling NP 03/21/[address] [place] [address] Malou Ling NP 03/20/[address] [place] [address] Buddy Bentley RN Appointment Reminder Call from [...] on file 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 MEDICARE Address: [address] [address] MEDICARE AETNA [facility] MEDICARE ADVANTAGE [facility] MEDICARE Address: [address] [address] [place] [address] Care Teams Financial Services Internship Relationship Specialty [place] [address] [address] [place] [address] PCP - General Family Medicine 03/31/21 [place] [address] [address] [place] [address] Surgeon General Surgery 04/23/21
--- NOTE | 2025-06-07 06:27 | WPDHPUPDATE1 ---
History and Physical Update Update Date/Time: 06/07/25 06:27 History and Physical has been reviewed, including an updated exam of the patient. There are NO changes in the patient's condition. Risks, benefits, and alternatives have been discussed and questions answered. Patient agrees to proceed with procedure.
--- NOTE | 2025-06-07 08:13 | WPDANESEPPF ---
Anes - Initial Pre Proc Eval Procedure: Operation Date: 06/07/25 09:30 Proposed Procedures p Left Extracorporeal Shock Wave Lithotripsy, - Jonathon Serrato MD s Possible Cystoscopy, Possible Left Stent Placement - Jonathon Serrato MD Date/Time: 06/07/25 08:13 Surgeon: Jonathon Serrato MD Pre Op Diagnosis: left kidney stone Patient Data Age: 75 Gender: M Height: 1.68 m Weight: 73 kg Allergies Allergy/AdvReac Type Severity Reaction Status Date / Time No Known Allergies Allergy Verified 05/30/25 14:19 Home Medications ?Medication ?Instructions ?Recorded ?Confirmed ?Type ondansetron 4 mg disintegrating 4 mg PO Q8H PRN nausea and 05/02/25 05/30/25 Rx tablet vomiting #14 tabs diltiazem HCl 120 mg 120 mg PO DAILY 05/30/25 05/30/25 History capsule,extended release 24 hr fiber 1 tablet PO DAILY 05/30/25 05/30/25 History magnesium oxide-magnesium amino 1 cap PO DAILY 05/30/25 05/30/25 History acid chelate 300 mg capsule meloxicam 15 mg tablet 15 mg PO DAILY 05/30/25 05/30/25 History multivitamin (Daily Multi-Vitamin 1 tablet PO DAILY 05/30/25 05/30/25 History tablet) Patient hx anesthesia problems: none Family hx anesthesia problems: none Results Review: All pre-operative results and documents have been reviewed as part of the pre-operative evaluation. [facility] Past Medical History Medical History (Updated 06/06/25 @ 14:14 by Ayan Yan DO) PONV (postoperative nausea and vomiting) BPH (benign prostatic hyperplasia) Migraine Asthma Social History Social History Smoking status: Former smoker Tobacco type: cigars Second hand tobacco smoke exposure: Yes Smoking end date: 08/15/85 Additional smoking assessment comments: occ cigar at special occasion Alcohol intake: current Drinks per week: 1 Substance use: never Living arrangements: with family Additional living arrangements comments: Spiritual care concerns: No Anes - Eval Final PreProcedure Day of Procedure 06/07/25 08:13 Patient weight: overweight Heart: regular rate and rhythm Lungs: clear to auscultation Airway: Mallampati scale class II Neurological: alert and oriented Last oral intake: >/= 8 hours ASA classification: II Emergent: no Anesthetic plan: proceed Anesthesia type and monitoring: general LMA and standard monitoring Results Review: All pre-operative results and documents have been reviewed as part of the pre-operative evaluation. Informed Consent: The patient's anesthetic plan and its attendant risks and benefits were discussed with the patient/family/POA. Questions were solicited and answers provided to the satisfaction of the patient/family/POA.
[2025-06-07] MEDS: LACTATED RINGERS 1,000 ML 30 ML IV CONT (08:15)
[2025-06-07] MEDS: ceFAZolin 2 GM in SODIUM CHLORIDE 0.9% IV 50 ML 100 ML IVPB (09:12)
--- NOTE | 2025-06-07 09:27 | W.PM.PROC2 ---
Procedure Note - Detailed Date of Procedure 06/07/25 Pre-op Diagnosis Left kidney stone Post-op Diagnosis Same Procedure Performed Left ESWL Surgeon Jonathon Serrato MD Anesthesia General Description of Procedure The patient was brought to the operative suite where he was placed in the supine position on the Dornier lithotripsy table. The focal point of the lithotripter was placed at a 8-9mm left renal calculus. A total of 2500 shocks were delivered at a power setting of 4. There appeared to be good fragmentation of the stone. The patient tolerated the procedure well and was taken to the recovery room in good condition. Drains No Packing No Pathology None sent Condition Stable Disposition PACU
== END 2025-06-07 11:21 | disposition home or self-care (01) ==
PROVIDERS: Visit Provider Urology
PROC: (CPT 50590; principal; 2025-06-07 09:30)
DX: N20.0 Calculus of kidney (principal); N40.0 Benign prostatic hyperplasia without lower urinary tract symptoms; J45.909 Unspecified asthma, uncomplicated; F17.290 Nicotine dependence, other tobacco product, uncomplicated; Z79.1 Long term (current) use of non-steroidal anti-inflammatories (NSAID); Z79.891 Long term (current) use of opiate analgesic
CPT/HCPCS: 50590; 74018; J0690; J2003; J2405; J2704; J7120

== ENCOUNTER 2025-06-18 14:05 | Outpatient (CLI) | payer MEDICARE, SELFPAY ==
--- NOTE | ~2025-06-18 | XR_ITS ---
XR abdomen/kub 1V 06/18/2025 14:35 INDICATION: Renal stone TECHNIQUE: KUB COMPARISON: 06/07/2025 FINDINGS: Bowel gas pattern is normal. There is no evidence of free air, mass, organomegaly, ascites or obstruction. There are multiple left renal stones. No definite right renal stone is identified. The bones appear intact. IMPRESSION: 1: Left nephrolithiasis.. Reviewed, dictated and finalized at location O. 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
--- OUTSIDE RECORDS SUMMARY | 2025-06-18 15:39 | XMS_ITS | Clinical Summary ---
Author Organization [facility] Physician Of [facility] [address] [place] [phone] Care Team Providers Care Press Tender Long Goods Name Role Phone Wayne Mahmood DO Primary Care Provider + Veto Davila MD Unavailable [phone] Allergies No known active allergies Medications dilTIAZem [...] (04/15/2021): Added automatically from request for surgery [id number] Encounters Date Type Department Care Team Description 05/29/2025 8:47 AM CDT - 05/29/2025 11:59 PM CDT Hospital Encounter [facility] Pain Management [address] [place] [address] [address] [place] [phone] Rodriguez Bentley NP Cervical radiculopathy (Primary Dx); Cervical spinal stenosis Discharge Disposition: Discharge to home or self care 05/27/2025 Telephone [facility] Pain Management [address] [place] [address] [address] [place] [phone] Ivett Balderas 05/08/2025 11:00 AM CDT Office Visit [facility] Medical Group Orthopedics and Sports Medicine at [address] [phone] Jordon Nieto MD Nontraumatic complete tear of right rotator cuff (Primary Dx); Right bicipital tenosynovitis 05/08/2025 8:38 AM CDT - 05/08/2025 11:59 PM CDT Hospital Encounter [facility] Pain [address] [address] Wayne Sloan MD Cervical spinal stenosis [M48.02] (Primary Dx); Cervicalgia; Cervical radiculopathy Discharge Disposition: Discharge to home or self care 05/01/2025 Results Follow-Up [facility] Medical Group Orthopedics and Sports Medicine at [address] [phone] Jordon Nieto MD MRI Shoulder Right WO Contrast 04/30/2025 10:26 AM CDT - 04/30/2025 11:59 PM CDT Hospital Encounter [facility] Imaging and Radiology [address] [place] [phone] Chronic right shoulder pain; Internal derangement of right shoulder Discharge Disposition: Discharge to home or self care 04/24/2025 8:29 AM CDT - 04/24/2025 11:59 PM CDT Hospital Encounter [facility] Pain Management Center [address] [place] [address] Wayne Sloan MD Chronic pain of both shoulders (Primary Dx); Cervicalgia; Cervical radiculopathy; Cervical spinal stenosis Discharge Disposition: Discharge to home or self care 04/10/2025 10:45 AM CDT Office Visit [facility] Medical Group Orthopedics and Sports Medicine at [address] [place] [phone] Jordon Nieto MD Left bicipital tenosynovitis (Primary Dx); Incomplete tear of left rotator cuff, unspecified whether traumatic; Chronic right shoulder pain; Internal derangement of right shoulder 04/02/2025 12:45 PM CDT Office Visit [facility] [address] [place] [address] [place] [address] Malou Ling NP Cervical radiculopathy (Primary Dx) 03/27/2025 Results Follow-Up [facility] Group Orthopedics and Sports Medicine at [address] [place] [phone] Jordon Nieto MD MRI Shoulder Left WO Contrast 03/26/2025 8:28 AM CDT - 03/26/2025 11:59 PM CDT Hospital Encounter [facility] Imaging and Radiology [address] [place] [phone] Internal derangement of left shoulder; Chronic left shoulder pain Discharge Disposition: Discharge to home or self care 03/26/2025 8:28 AM CDT - 03/26/2025 11:59 PM CDT Hospital Encounter [facility] Imaging and Radiology [address] [place] [phone] Cervical spondylosis with myelopathy [M47.12] Discharge Disposition: Discharge to home or self care 03/21/2025 11:00 AM CDT Office Visit [address] [place] [address] Malou Ling NP Cervical spondylosis with myelopathy [M47.12] (Primary Dx); DDD (degenerative disc disease), cervical; Anterolisthesis of cervical spine 03/21/2025 Telephone [facility] [address] [place] [address] [place] [phone] Malou Ling NP 03/21/[address] [place] [address] Malou Ling NP 03/20/[address] [place] [address] Buddy Bentley RN Appointment Reminder Call from [...] on file 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 Electronically signed by: DO Kamron cK 03/26/2025 3:24 PM CDT EXAMINATION: Magnetic resonance [...] in detail above. Electronically signed by: Annita hCow DO us Malou Ling TREATER HELPER IMG MRI PROCEDURES Sylvia l Result * [...] by: Wade Pedroza M.D. Jordon Nieto MD IMG MRI PROCEDURES Final R esult from Last 3 Months Insurance UHC MEDICARE ADVANTAGE [facility] MEDICARE Address: [address] [address] MEDICARE AETNA [facility] MEDICARE ADVANTAGE Care Teams Press Tender Long Goods Relationship Specialty [place] [address] [address] [place] [address] PCP - General Family Medicine 03/31/21 [place] [address] [address] [place] [address] Surgeon General Surgery 04/23/21
--- OUTSIDE RECORDS SUMMARY | 2025-06-18 15:39 | XMS_ITS | Encounter Summary ---
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
--- OUTSIDE RECORDS SUMMARY | 2025-06-18 15:39 | XMS_ITS | Clinical Summary ---
Author Organization [facility] Address [address] [place] [address] Care Team Providers Care General Repairer Name Role Phone Espinoza Dinh DO Primary Care Provider Source Comments [facility],non-owned Affiliates and Associated Physician Practices is amultiple site organization consisting of ambulatory clinics and hospital sitesin [place], [place], [place] and [place]. This disclosure is being madepursuant to the Care Everywhere program and may not contain all information available regarding this patient. Last updated 18.[facility] Allergies No known active allergies Medications * [...] complete this topic Insurance MEDICARE COMMERCIAL GENERIC MEDICARE Care Teams General Repairer Relationship Specialty Start Date End Date Espinoza Dinh DO [address] [facility] [address] [place] [address] PCP - General Immigration Case Manager 12/23/14
== END 2025-06-18 14:06 | disposition home or self-care (01) ==
PROVIDERS: Visit Provider Urology
DX: N20.0 Calculus of kidney (principal)
CPT/HCPCS: 74018